=== PATIENT | female | born 1955 | race Caucasian/White ===

== ENCOUNTER → 2021-03-10 | Day surgery (SDC) | payer BC | LOC: CSHSDC/OP 10:00 | PROVIDERS: ATTEND Family Medicine | DX: U07.1 COVID-19 (principal); Z23 Encounter for immunization | CPT/HCPCS: J3490; Q0244 ==

== ENCOUNTER 2021-12-15 14:46 | Outpatient (CLI) | payer MEDICARE | END 2021-12-15 14:47 | disposition home or self-care (01) | LOC: CSHULT 14:46 | PROVIDERS: ATTEND Family Medicine | DX: R06.09 Other forms of dyspnea (principal); Z86.16 Personal history of COVID-19; I51.9 Heart disease, unspecified; I35.1 Nonrheumatic aortic (valve) insufficiency; I34.0 Nonrheumatic mitral (valve) insufficiency; I77.810 Thoracic aortic ectasia | CPT/HCPCS: 93306 ==

== ENCOUNTER 2022-04-20 12:36 | Outpatient (CLI) | payer MEDICARE | END 2022-04-20 12:37 | disposition home or self-care (01) | LOC: CSHCP 12:36 | PROVIDERS: ATTEND Nurse Practitioner Family | DX: R06.02 Shortness of breath (principal) | CPT/HCPCS: 94060; 94726; 94729; 94760 ==